=== PATIENT | female | born 2000 | race Two or more races ===

== ENCOUNTER 2022-06-26 11:32 | Observation (INO) | payer MEDICAID, OTHER ==
[~2022-06-26] VITALS: Ht 157.5 cm; Wt 186.0 kg
[2022-06-26 12:52] VITALS: BP 115/81
[2022-06-26] MEDS ORDERED: ACETAMINOPHEN 500 MG TAB PO ONE (13:00)
[2022-06-26] MEDS ORDERED: ACET-1080 PO (14:21)
[2022-06-26 16:57] LABS: Basophils # (auto) 0 10 ^3/uL (0-0.2); Basophils % (auto) 0.2 % (0.0-2.0); Eosinophils # (auto) 0.1 10 ^3/uL (0-0.8); Eosinophils % (auto) 0.9 % (0.0-7.0); Hematocrit 39.5 % (36.0-46.0); Hemoglobin 13.1 g/dL (12.2-16.2); Lymphocytes # (auto) 2.3 10 ^3/uL (0.4-5.4); Mean Corpuscular Hemoglobin 31.7 pg (28.0-32.0); Mean Corpuscular Hgb Conc. 33.2 g/dL (32.0-36.0); Mean Corpuscular Volume 95.5 fL (80.0-100.0); Monocytes # (auto) 0.5 10 ^3/uL (0-1.3); Monocytes % (auto) 7.3 % (0.0-12.0); Neutrophils # (auto) 4.6 10 ^3/uL (1.6-8.6); Neutrophils % (auto) 61.6 % (37.0-80.0); Nucleated Red Blood Cells % 0.1 %; Red Blood Cells 4.14 10^6/uL (4.0-5.20); Red Cell Distribution Width 13.5 % (11.8-14.3); White Blood Cell 7.5 10^3/uL (4.4-10.8)
[2022-06-26 17:16] LABS: Albumin 2.9 g/dL (3.4-5.0); Calcium 9.1 mg/dL (8.5-10.1); Potassium 3.7 mmol/L (3.5-5.1); Uric Acid 3.9 mg/dL (2.6-6.0)
[2022-06-26 17:19] LABS: BUN/Creatinine Ratio 14.5; Bilirubin, Total 0.3 mg/dL (0.2-1.0); Total Protein 6.4 g/dL (6.4-8.2)
[2022-06-26] MEDS ORDERED: PREN-96 PO (17:36)
== END 2022-06-26 17:57 | disposition home or self-care (01) ==
LOC: ER 11:32 → UNDOADMOB 14:34 → LDRP 14:34 → UNDODISOB 17:57
PROVIDERS: ADMIT Obstetrics & Gynecology; ATTEND Obstetrics & Gynecology
DX: O62.9 Abnormality of forces of labor, unspecified (principal); O26.893 Other specified pregnancy related conditions, third trimester; R10.9 Unspecified abdominal pain; O99.353 Diseases of the nervous system complicating pregnancy, third trimester; G43.909 Migraine, unspecified, not intractable, without status migrainosus; O99.113 Other diseases of the blood and blood-forming organs and certain disorders involving the immune mechanism complicating pregnancy, third trimester; D84.9 Immunodeficiency, unspecified; Z3A.36 36 weeks gestation of pregnancy
CPT/HCPCS: 36415; 59025; 76805; 80053; 81002; 84550; 85025; 94760; 99284; G0378

== ENCOUNTER 2025-09-17 19:45 | Emergency (ER) | payer MEDICAID ==
[~2025-09-17] VITALS: Ht 157.5 cm; Wt 72.3 kg
[~2025-09-17 19:45] MED LIST: ACET-1080 PO; PREN-96 PO
[2025-09-17 20:29] LABS: Hematocrit 36.7 % (36.0-46.0); Hemoglobin 12.4 g/dL (12.2-16.2); Mean Corpuscular Hemoglobin 31.9 pg (28.0-32.0); Mean Corpuscular Volume 94.3 fL (80.0-100.0); Nucleated Red Blood Cells % 0.1 %
[2025-09-17 20:46] LABS: Alanine Aminotransferase 18 U/L (7-40); Albumin 4.1 g/dL (3.2-4.8); Alkaline Phosphatase 61 U/L (46-116); Anion Gap 12 (5-15); BUN/Creatinine Ratio 14.5 (10.0-20.0); Bilirubin, Total 0.5 mg/dL (0.2-1.0); Blood Urea Nitrogen 16 mg/dL (9-23); Carbon Dioxide 27 mmol/L (20-31); Chloride 106 mmol/L (98-107); Glucose 89 mg/dL (74-106); Potassium 3.9 mmol/L (3.5-5.1); Sodium 145 mmol/L (136-145); Total Protein 6.7 g/dL (5.7-8.2)
[2025-09-17 20:47] LABS: Calcium 8.6 mg/dL (8.7-10.4)
--- NOTE | 2025-09-17 21:14 | ED.PDOC ---
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 Patient states she has been having vaginal bleeding for the past week. Few hours ago, vaginal bleeding persisted, now associated with suprapubic cramps. Patient tested negative for via home kit. Denies . Past Medical History: Denies Surgical History: Denies Family History: Denies Personal and Social History: Denies HPI: Poor Historian. REVIEW OF SYSTEMS: CONSTITUTIONAL: Denies acute: fever, diaphoresis, chills, generalized weakness. HEAD: Denies acute: headache, photophobia Eyes: Denies acute: Double vision, vision loss, eye pain, eye discharge. EARS: Denies acute: tinnitus, hearing loss, ear discharge, ear pain, THROAT: Denies acute: sore throat, swelling, difficulty swallowing , pain with swallowing, change in voice. NECK: Denies acute: neck pain, neck swelling, stiff neck. HEART: Denies acute : chest pain, palpitations, LUNGS: Denies acute: SOB, wheezing, cough, hemoptysis ABDOMEN: Denies acute: Nausea, Vomiting, diarrhea, melena , hematemesis, hematochezia SKIN: Denies acute: rash, redness, lesions, itchiness. EXTREMITIES: Denies acute: calf pain, numbness, tingling, weakness, denies pain in extremity. Denies acute: Low back pain. Neuro: Denies acute: focal neurological deficit, motor or sensory focal neurological deficit, tremors, seizure like activity, confusion, dizziness, change in mental status, loss of bowel or bladder function, cauda equina like symptoms. : Denies acute: dysuria, hematuria, flank pain, increase in urinary frequency. PSYCH: Denies acute: hallucination, suicidal ideation, homicidal ideation. FEMALE: Denies acute: , foul odor, unusual discharge. PHYSICAL EXAM: General: ---mild----acute distress, awake and alert. Head: normocephalic, atraumatic. No raccoon's eyes, no astudillo sign. Neck: supple, trachea is midline, no swelling. Throat: Normal phonation. Eyes:, no erythema, no purulent discharge, no proptosis, no icterus. Heart: regular rate, regular rhythm, no significant murmur appreciated. Lungs: no apparent respiratory distress, Able to speak in full sentences. No wheezing, no rhonchi, no crackles. No stridors Clear to auscultation bilaterally. Abdomen: Suprapubic tender to palpation, non distended, soft, no guarding, no rebound, + bowel sounds. Neuro: Awake, Alert, oriented to name, self, situation, follows commands GCS=15. Speech is normal. Skin: no petechia, no purpura, no cyanosis, non-pale, not jaundice. Lower extremities: --no - Pitting edema no deformity, no focal swelling, no calf TTP. Makes eye contact. moves all four extremities. Face: no apparent facial droop. Ambulating in the ED independently. ED COURSE: DISCLAIMER: This medical document was created using an electronic medical record system with voice recognition software and computerized dictation system. Although this document has been carefully reviewed, there might still be some phonetic and typographical errors. Occasional wrong-word or "sound-alike" substitutions may have occurred due to the inherent limitations of voice recognition software. These areas are purely typographical due to imperfections of the software programs and do not reflect any compromise in the patient's medical care. Please read the chart carefully and recognize, using context, where these substitutions have occurred. Chief Complaint: Vaginal Bleed Time Seen by MD: 21:14 Reviewed Notes: Nurses Notes, Allergies Allergies: Coded Allergies: NO KNOWN ALLERGIES (Unverified , 06/26/22) Home Meds Active Scripts Cephalexin Monohydrate (Cephalexin) 500 Mg Cap, 500 MG PO Q8HP PRN for 7 Days, #21 CAP Prov:ALF FISHER DO 09/18/25 Acetaminophen (Tylenol 8 Hour Arthritis) 650 Mg Tab, 650 MG PO TID, #30 TAB Prov:RAMÓN CHARLES 06/26/22 Reported Medications Vit W/ Ferrous Fumara ( One Daily) Daily Tab, 1 TAB PO DAILY, TAB 06/26/22 Information Source: Patient Mode of Arrival: Ambulatory Past Medical History Surgical History: Denies all surgeries 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 Was a procedure done?: No X-Ray, Labs, Meds, VS Vital Signs Date Time Temp Pulse Resp B/P (MAP) Pulse Ox O2 Delivery O2 Flow Rate FiO2 09/17/25 23:52 98.1 64 18 114/68 (83) 98 98.1 09/17/25 23:52 64 18 98 Room Air 09/17/25 19:55 98.2 65 16 123/75 100 98.2 Lab Test 09/17/25 21:40 09/17/25 20:19 Range/Units Urine Color Light-red Yellow Urine Clarity Ex.turbid Clear Urine pH 8.0 5.0-9.0 Urine Specific [place] 1.031 1.001-1.035 Urine Protein 2+ H Negative Urine Ketones Negative Negative Urine Blood 3+ H Negative /uL Urine Nitrite Negative Negative Urine Bilirubin Negative Negative Urine Urobilinogen Normal Negative mg/dL Urine Leukocyte Esterase 1+ Negative /uL Urine RBC 5243 0 - 4 /hpf Urine Microscopic WBC 62 H 0-5 /HPF Urine Squamous Epithelial Cells Few <5 /hpf Urine Amorphous Crystals Few None Seen /hpf Urine Bacteria None seen None Seen /hpf Urine Mucus Few None Seen Urine Glucose Normal Normal mg/dL Urine Test Negative Negative White Blood Count 5.8 4.4-10.8 10^3/uL Red Blood Count 3.89 L 4.0-5.20 10^6/uL Hemoglobin 12.4 12.2-16.2 g/dL Hematocrit 36.7 36.0-46.0 % Mean Corpuscular Volume 94.3 80.0-100.0 fL Mean Corpuscular Hemoglobin 31.9 28.0-32.0 pg Mean Corpuscular Hemoglobin Concent 33.9 32.0-36.0 g/dL Red Cell Distribution Width 12.7 11.8-14.3 % Platelet Count 253 140-450 10^3/uL Mean Platelet Volume 8.3 6.9-10.8 fL Neutrophils (%) (Auto) 38.6 37.0-80.0 % Lymphocytes (%) (Auto) 51.2 H 10.0-50.0 % Monocytes (%) (Auto) 7.7 0.0-12.0 % Eosinophils (%) (Auto) 1.8 0.0-7.0 % Basophils (%) (Auto) 0.7 0.0-2.0 % Neutrophils # (Auto) 2.2 1.6-8.6 10 ^3/uL Lymphocytes # (Auto) 3.0 0.4-5.4 10 ^3/uL Monocytes # (Auto) 0.4 0-1.3 10 ^3/uL Eosinophils # (Auto) 0.1 0-0.8 10 ^3/uL Basophils # (Auto) 0 0-0.2 10 ^3/uL Nucleated Red Blood Cells 0.1 % Sodium Level 145 136-145 mmol/L Potassium Level 3.9 3.5-5.1 mmol/L Chloride Level 106 98-107 mmol/L Carbon Dioxide Level 27 20-31 mmol/L Anion Gap 12 5-15 Blood Urea Nitrogen 16 9-23 mg/dL Creatinine 1.10 H 0.550-1.02 mg/dL Glomerular Filtration Rate Calc 71 >90 mL/min BUN/Creatinine Ratio 14.5 10.0-20.0 Serum Glucose 89 74-106 mg/dL Lactic Acid Level 0.9 0.4-2.0 mmol/L Calcium Level 8.6 L 8.7-10.4 mg/dL Total Bilirubin 0.5 0.2-1.0 mg/dL Aspartate Amino Transferase (AST) 17 13-40 U/L Alanine Aminotransferase (ALT) 18 7-40 U/L Alkaline Phosphatase 61 46-116 U/L Total Protein 6.7 5.7-8.2 g/dL Albumin 4.1 3.2-4.8 g/dL [place] [address] Ph: [phone] DIAGNOSTIC IMAGING Diagnostic Imaging Report : [id number] Signed PATIENT: XAVIER BASSETT ACCT: [id number] UNIT: [id number] : 2000 LOC: ER ROOM / BED: / AGE / SEX: 24 / F ADM STATUS: REG ER SERVICE 13 ORDERING PHYSICIAN: ALF FISHER DO PROCEDURE(s): PELUS - PELVIC REASON: VAG BLEED ORDER NUMBER(s): [id number], ACCESSION NUMBER(s): [id number] INDICATION: VAG BLEED TECHNIQUE: Multiple real-time grayscale transabdominal sonographic images along with color and duplex Doppler of the uterus and ovaries were obtained. COMPARISON: None FINDINGS: The uterus measures 9.3 x 5.7 x 6.3 cm. The endometrial stripe measures 1.1 cm. IUD well positioned within the endometrial canal. Right ovary measures 3.8 x 2.0 x 2.9 cm with normal Doppler color flow Left ovary measures 2.3 x 1.9 x 2.0 cm with normal Doppler color flow No adnexal mass. No free fluid. IMPRESSION: Grossly unremarkable pelvic ultrasound. ATED BY: GUANKAITO BURDICK MD DICTATED DATE/TIME: 09/17/252208 SIGNED BY: GUANAKITO BURDICK MD SIGNED DATE/TIME: 09/17/252208 CC: Time of 1ST Reevaluation: 21:13 Reevaluation 1ST: Unchanged Patient Education/Counseling: Diagnosis, Treatment Family Education/Counseling: No Family Present Comments There was retained tampon in the vaginal cuff. Pelvic exam was performed speculum exam was performed in the presence of ralph Noriega. They foreign body/tampon was removed the patient could not get out on her own. Departure 1 Departure Time of Disposition: 21:59 Impression: Primary Impression: Vaginal bleeding Additional Impressions: Menstrual cramps UTI (urinary tract infection) Retained foreign body of vagina Disposition: 01 HOME / SELF CARE / HOMELESS Condition: Stable Additional Instructions: Additional instructions: Please read all instructions provided in this packet carefully. You MUST follow-up with your primary care/family doctor in 1 to 2 days. If you are unable to see your primary care/family doctor, please return to our emergency room for re-assessment and re-evaluation in 1 to 2 days. Return to the emergency room here in our facility or to the nearest ER [facility] if your symptoms change or worsen. CONSULTATIONS: you MUST Follow-up for consultation as soon as possible with: --OB Gyne doctor in 1-2 days. Please call for appointment. You MUST call the consultants office yourself to make an appointment. You may need to arrange that through your insurance and/or your primary/family doctor. If you are unable to see the devops consultant in 1 to 2 days, you must return to our emergency room (or any other ER of your choice) for re-assessment and re- evaluation. Adequate fluid hydration. Although you have been discharged from the Emergency Department, this does not mean that you have a "clean bill of health". No definitive diagnosis for your symptoms has been made today. It is possible that you are in the process of developing a serious illness. This is why you must return to the ED without fail if any new or worsening symptoms develop. Below is a copy of your radiological report for follow up: [place] [address] Ph: [phone] DIAGNOSTIC IMAGING Diagnostic Imaging Report : [id number] Signed PATIENT: XAVIER BASSETT ACCT: [id number] UNIT: [id number] : 2000 LOC: ER ROOM / BED: / AGE / SEX: 24 / F ADM STATUS: REG ER SERVICE 13 ORDERING PHYSICIAN: ALF FISHER DO PROCEDURE(s): PELUS - PELVIC REASON: VAG BLEED ORDER NUMBER(s): [id number], ACCESSION NUMBER(s): [id number] INDICATION: VAG BLEED TECHNIQUE: Multiple real-time grayscale transabdominal sonographic images along with color and duplex Doppler of the uterus and ovaries were obtained. COMPARISON: None FINDINGS: The uterus measures 9.3 x 5.7 x 6.3 cm. The endometrial stripe measures 1.1 cm. IUD well positioned within the endometrial canal. Right ovary measures 3.8 x 2.0 x 2.9 cm with normal Doppler color flow Left ovary measures 2.3 x 1.9 x 2.0 cm with normal Doppler color flow No adnexal mass. No free fluid. IMPRESSION: Grossly unremarkable pelvic ultrasound. ATED BY: GUANAKITO BURDICK MD DICTATED DATE/TIME: 09/17/252208 SIGNED BY: GUANAKITO BURDICK MD SIGNED DATE/TIME: 09/17/252208 CC: e-Prescriptions Cephalexin Monohydrate (Cephalexin) 500 Mg Cap 500 MG PO Q8HP PRN for 7 Days, #21 CAP Prov: ALF FISHER DO 09/18/25 Discharged With: Self Critical Care Note Critical Care Time?: No I personally scribed for ALF FISHER DO ([email or web address]) on 09/17/25 at 21:14. Electronically submitted by Tad Tarango ([facility]). I personally scribed for ALF FISHER DO ([email or web address]) on 09/17/25 at 21:22. Electronically submitted by Tad Tarango ([facility]). I personally scribed for ALF FISHER DO ([email or web address]) on 09/17/25 at 23:43. Electronically submitted by Tad Tarango ([facility]). I personally scribed for ALF FISHER DO ([email or web address]) on 09/18/25 at 00:29. Electronically submitted by Tad Tarango ([facility]). I personally scribed for ALF FISHER DO ([email or web address]) on 09/18/25 at 02:04. Electronically submitted by Tad Tarango ([facility]). ALF FISHER DO Sep 17, 2025 21:14
--- NOTE | 2025-09-17 22:11 | DVH ---
INDICATION: VAG BLEED TECHNIQUE: Multiple real-time grayscale transabdominal sonographic images along with color and duplex Doppler of the uterus and ovaries were obtained. COMPARISON: None FINDINGS: The uterus measures 9.3 x 5.7 x 6.3 cm. The endometrial stripe measures 1.1 cm. IUD well positioned within the endometrial canal. Right ovary measures 3.8 x 2.0 x 2.9 cm with normal Doppler color flow Left ovary measures 2.3 x 1.9 x 2.0 cm with normal Doppler color flow No adnexal mass. No free fluid. IMPRESSION: Grossly unremarkable pelvic ultrasound.
[2025-09-17 22:56] LABS: Urine Amorphous Crystal FEW /hpf (None Seen); Urine Protein, UAD 2+ (Negative)
[2025-09-17 23:52] VITALS: TEMP 98.1
[2025-09-18] MEDS ORDERED: CEPH500C PO (02:03)
[2025-09-18 02:29] VITALS: BP 118/72; PULSE 63; RESP 17; O2SAT 98
== END 2025-09-18 02:32 | disposition home or self-care (01) ==
LOC: ER 19:45
DX: N93.9 Abnormal uterine and vaginal bleeding, unspecified (principal); N39.0 Urinary tract infection, site not specified; N94.6 Dysmenorrhea, unspecified
CPT/HCPCS: 36415; 76830; 76856; 80053; 81001; 81025; 83605; 85025; 86850; 86900; 86901